=== PATIENT | female | born 1945 | race Caucasian/White ===

== ENCOUNTER 2022-06-17 02:10 | Inpatient (IN) ==
[2022-06-17] MEDS ORDERED: *HR* Midazolam HCl 2 MG/2 ML VIAL IVP ONE (02:30)
[2022-06-17 03:12] LABS: Basophils # 0.1 K/mcL (0.0-0.2); Basophils % 0.9 %; Eosinophils # 0.1 K/mcL (0.0-0.6); Eosinophils % 1.2 %; Hematocrit 36.1 % (35.3-44.9); Hemoglobin 11.3 g/dL (11.5-15.4); Immature Granulocytes % 0.3 % (0-4); Lymphocytes # 0.6 K/mcL (0.6-4.6); Lymphocytes % 9.7 %; Mean Corpuscular HGB Conc 31.3 g/dL (31.6-35.5); Mean Corpuscular Volume 89.6 fL (83.0-100.0); Mean Platelet Volume 12.8 fL (9.4-12.4); Monocytes # 0.7 K/mcL (0.0-1.3); Monocytes % 10.8 %; Neutrophils # 4.9 K/mcL (1.6-8.9); Platelet Count 181 K/mcL (140-400); Red Blood Count 4.03 M/mcL (3.82-4.97); Red Cell Distribution Width 15.7 % (11.5-14.5); Segmented Neutrophils % 77.1 %; White Blood Count 6.4 K/mcL (4.3-11.1)
[2022-06-17 03:16] LABS: INR 1.3; Prothrombin Time 14.7 Seconds (9.4-12.1)
[2022-06-17 03:29] LABS: Alanine Aminotransferase 1 Units/L (7-52); Albumin 4.3 g/dL (3.5-5.7); Albumin/Globulin Ratio 1.9 (1.1-2.2); Alkaline Phosphatase 79 Units/L (34-104); Aspartate Amino Transferase 8 Units/L (13-39); BUN/Creatinine Ratio 23 (6-26); Bilirubin,Total 1.1 mg/dL (0.3-1.0); Blood Urea Nitrogen 16 mg/dL (8-23); Calcium 9.2 mg/dL (8.6-10.3); Carbon Dioxide 29 mEq/L (23-29); Chloride 99 mEq/L (98-107); Globulin 2.3 g/dL (2.4-3.5); Glucose 112 mg/dL (70-105); Osmolality,Calculated 284 (280-300); Potassium 3.2 mEq/L (3.5-5.1); Sodium 136 mEq/L (136-145); Total Protein 6.6 g/dL (6.4-8.9)
[2022-06-17] MEDS: *HR* Midazolam HCl 2 MG/2 ML VIAL IVP PRN ×4 (05:06→11:57)
[2022-06-17] MEDS: 0.9 % Sodium Chloride 1,000 ML IVC SCH ×6 (05:10→17:26)
[2022-06-17 05:15] LABS: Bilirubin,Urine Small (Negative); Blood,Urine Negative (Negative); Clarity,Urine Clear (Clear); Color,Urine Yellow (Yellow); Glucose,Urine (UA) Normal (Normal); Ketones,Urine 15 mg/dL (Negative); Leukocyte Esterase,Urine Negative (Negative); Nitrite,Urine Negative (Negative); PH,Urine 5.5 pH Units (5.0-8.0); Protein,Urine 30 mg/dL (Neg-Trace); Specific Gravity,Urine >= 1.030 (1.010-1.025); Urobilinogen,Urine Normal (Normal)
[2022-06-17 05:36] LABS: Bacteria,Urine Few per hpf (None-Few); Calcium Oxalate Crystals,Urine Present per hpf; Mucus,Urine Few per lpf (None-Few); RBC,Urine 0-3 per hpf (0-3); Squamous Epithelial Cell,Urine Few per hpf (None-Few)
[2022-06-17 05:47] LABS: Amphetamine Screen,Urine Negative ng/mL (Cutoff=1000); Barbiturate Screen,Urine Negative ng/mL (Cutoff=200); Benzodiazepines Screen,Urine Positive ng/mL (Cutoff=200); Cannabinoid Screen,Urine Negative ng/mL (Cutoff = 50); Cocaine Screen,Urine Negative ng/mL (Cutoff= 300); Opiate Screen,Urine Positive ng/mL (Cutoff=300); Phencyclidine Screen,Urine Negative ng/mL (Cutoff=25)
[2022-06-17] MEDS ORDERED: cefTRIAXone 1,000 MG in 0.9 % Sodium Chloride Mini Bag 100 ML IVPB ONE (05:53)
[2022-06-17 12:08] LABS: VBG HCO3 29 mEq/L (21-27); VBG PCO2 60 mmHg (41-51); VBG PO2 49 mmHg (25-50)
[2022-06-17 12:48] LABS: Calcium 8.7 mg/dL (8.6-10.3); Potassium 3.7 mEq/L (3.5-5.1); Troponin I 0.05 ng/mL (< 0.04)
[2022-06-17] MEDS ORDERED: Naloxone 0.4 MG/ML INJ IVP PRN (14:21)
[2022-06-17] MEDS ORDERED: Ondansetron 4 MG/2 ML VIAL IVP PRN (14:21)
[2022-06-17] MEDS ORDERED: MOM Conc 10 ML UD.LIQ PO PRN ×2 (14:21→18:57)
[2022-06-17] MEDS ORDERED: Mag Hydrox/Al Hydrox/Simeth 30 ML UDC PO PRN ×2 (14:21→18:57)
[2022-06-17] MEDS ORDERED: Ondansetron ODT 4 MG TAB.RAPDIS SL PRN (14:21)
[2022-06-17] MEDS ORDERED: Melatonin 3 MG TABLET PO PRN (14:21)
[2022-06-17] MEDS ORDERED: 0.9 % Sodium Chloride 1,000 ML IVC SCH (15:30)
[2022-06-17] MEDS ORDERED: Haloperidol Lactate 5 MG/ML VIAL IVP PRN (15:52)
[2022-06-17] MEDS ORDERED: haloperidoL 1 MG TABLET PO PRN (15:52)
[2022-06-17] MEDS ORDERED: Bisacodyl 10 MG RECTAL SUPPOSITORY RC PRN (16:34)
[2022-06-17] MEDS ORDERED: Acetaminophen 650 MG RECTAL SUPP RC PRN (16:35)
[2022-06-17] MEDS: Piperacillin/Tazobactam 3.375 GM in 0.9 % Sodium Chloride Mini Bag 100 ML IVPB SCH (16:59)
[2022-06-17] MEDS: Famotidine 20 MG/2 ML VIAL IVP SCH (17:53)
[2022-06-17] MEDS: Sennosides/Docusate Sodium TABLET PO SCH (21:30)
[2022-06-17] MEDS: levoFLOXacin 500 MG TABLET PO SCH (21:31)
[2022-06-17] MEDS: Aspirin Enteric Coated 81 MG Tablet PO SCH (21:32)
[2022-06-18] MEDS: Piperacillin/Tazobactam 3.375 GM in 0.9 % Sodium Chloride Mini Bag 100 ML IVPB SCH ×3 (00:06→17:05)
[2022-06-18] MEDS: Famotidine 20 MG/2 ML VIAL IVP SCH ×2 (04:49→17:05)
[2022-06-18] MEDS: 0.9 % Sodium Chloride 1,000 ML IVC SCH (04:56)
[2022-06-18 05:08] LABS: Basophils # 0.1 K/mcL (0.0-0.2); Basophils % 1.3 %; Eosinophils # 0.3 K/mcL (0.0-0.6); Eosinophils % 4.2 %; Hematocrit 34.2 % (35.3-44.9); Hemoglobin 10.5 g/dL (11.5-15.4); Immature Granulocytes % 0.3 % (0-4); Lymphocytes # 0.7 K/mcL (0.6-4.6); Mean Corpuscular HGB Conc 30.7 g/dL (31.6-35.5); Mean Corpuscular Hemoglobin 27.9 pg (28.0-33.3); Mean Platelet Volume 12.9 fL (9.4-12.4); Monocytes # 0.6 K/mcL (0.0-1.3); Monocytes % 9.7 %; Neutrophils # 4.5 K/mcL (1.6-8.9); Platelet Count 137 K/mcL (140-400); Red Blood Count 3.76 M/mcL (3.82-4.97); Red Cell Distribution Width 15.6 % (11.5-14.5); Segmented Neutrophils % 72.5 %; White Blood Count 6.2 K/mcL (4.3-11.1)
[2022-06-18 05:22] LABS: Alanine Aminotransferase 3 Units/L (7-52); Albumin 3.6 g/dL (3.5-5.7); Albumin/Globulin Ratio 1.8 (1.1-2.2); Alkaline Phosphatase 66 Units/L (34-104); Aspartate Amino Transferase 7 Units/L (13-39); BUN/Creatinine Ratio 27 (6-26); Bilirubin,Total 1.1 mg/dL (0.3-1.0); Blood Urea Nitrogen 15 mg/dL (8-23); Calcium 8.3 mg/dL (8.6-10.3); Carbon Dioxide 28 mEq/L (23-29); Chloride 105 mEq/L (98-107); Glucose 77 mg/dL (70-105); Magnesium 1.7 mg/dL (1.6-2.6); Osmolality,Calculated 290 (280-300); Phosphorous 3.9 mg/dL (2.7-4.5); Potassium 3.2 mEq/L (3.5-5.1); Sodium 140 mEq/L (136-145); Total Protein 5.6 g/dL (6.4-8.9)
[2022-06-18] MEDS: Furosemide 20 MG TABLET PO SCH (08:19)
[2022-06-18] MEDS: Aspirin Enteric Coated 81 MG Tablet PO SCH ×2 (08:20→21:03)
[2022-06-18] MEDS: polyethylene glycoL 3350 17 GM POWD.PACK PO SCH (08:21)
[2022-06-18] MEDS: Carbidopa/Levodopa 25/100 TABLET PO SCH ×4 (09:33→17:05)
[2022-06-18] MEDS: Sacubitril/Valsartan 49/51 MG 1 TABLET PO SCH ×2 (09:34→21:05)
[2022-06-18] MEDS ORDERED: hydrALAZINE 10 MG TABLET PO ONE (11:46)
[2022-06-18] MEDS: Sennosides/Docusate Sodium TABLET PO SCH (21:04)
[2022-06-18] MEDS: levoFLOXacin 500 MG TABLET PO SCH (21:04)
[2022-06-18] MEDS: Carbidopa/Levodopa ER 50/200 TABLET PO SCH (21:04)
[2022-06-19] MEDS: Piperacillin/Tazobactam 3.375 GM in 0.9 % Sodium Chloride Mini Bag 100 ML IVPB SCH ×3 (00:18→16:17)
[2022-06-19 05:11] LABS: Hematocrit 34.5 % (35.3-44.9); Hemoglobin 10.4 g/dL (11.5-15.4); Mean Corpuscular HGB Conc 30.1 g/dL (31.6-35.5); Mean Corpuscular Hemoglobin 27.5 pg (28.0-33.3); Mean Corpuscular Volume 91.3 fL (83.0-100.0); Mean Platelet Volume 12.5 fL (9.4-12.4); Platelet Count 134 K/mcL (140-400); Red Blood Count 3.78 M/mcL (3.82-4.97); Red Cell Distribution Width 15.6 % (11.5-14.5); White Blood Count 6.2 K/mcL (4.3-11.1)
[2022-06-19] MEDS: *HR* Enoxaparin 40 MG/0.4 ML SYRINGE SQ SCH (05:25)
[2022-06-19] MEDS: Famotidine 20 MG/2 ML VIAL IVP SCH ×2 (05:25→16:16)
[2022-06-19 05:30] LABS: Calcium 8.4 mg/dL (8.6-10.3); Magnesium 1.8 mg/dL (1.6-2.6); Potassium 3.7 mEq/L (3.5-5.1)
[2022-06-19] MEDS: hydrALAZINE 10 MG TABLET PO PRN (05:56)
[2022-06-19] MEDS: 0.9 % Sodium Chloride 1,000 ML IVC SCH ×7 (07:11→07:17)
[2022-06-19] MEDS: Aspirin Enteric Coated 81 MG Tablet PO SCH ×2 (08:45→21:43)
[2022-06-19] MEDS: Acetaminophen 325 MG TABLET PO PRN (08:45)
[2022-06-19] MEDS: Furosemide 20 MG TABLET PO SCH (08:46)
[2022-06-19] MEDS: polyethylene glycoL 3350 17 GM POWD.PACK PO SCH (08:47)
[2022-06-19] MEDS: Carbidopa/Levodopa 25/100 TABLET PO SCH ×4 (08:52→21:52)
[2022-06-19] MEDS: Sacubitril/Valsartan 49/51 MG 1 TABLET PO SCH ×3 (10:30→21:57)
[2022-06-19] MEDS: Carbidopa/Levodopa ER 50/200 TABLET PO SCH (21:43)
[2022-06-19] MEDS: Sennosides/Docusate Sodium TABLET PO SCH (21:43)
[2022-06-20] MEDS: Piperacillin/Tazobactam 3.375 GM in 0.9 % Sodium Chloride Mini Bag 100 ML IVPB SCH ×3 (00:58→14:30)
[2022-06-20] MEDS: *HR* Enoxaparin 40 MG/0.4 ML SYRINGE SQ SCH (05:29)
[2022-06-20] MEDS: Famotidine 20 MG/2 ML VIAL IVP SCH (05:29)
[2022-06-20] MEDS: Acetaminophen 325 MG TABLET PO PRN (05:29)
[2022-06-20] MEDS: Aspirin Enteric Coated 81 MG Tablet PO SCH ×2 (09:26→21:40)
[2022-06-20] MEDS: hydrALAZINE 10 MG TABLET PO PRN (09:27)
[2022-06-20] MEDS: Furosemide 20 MG TABLET PO SCH (09:27)
[2022-06-20] MEDS: polyethylene glycoL 3350 17 GM POWD.PACK PO SCH (09:28)
[2022-06-20] MEDS: Sacubitril/Valsartan 49/51 MG 1 TABLET PO SCH ×2 (09:28→21:40)
[2022-06-20] MEDS: Carbidopa/Levodopa 25/100 TABLET PO SCH ×4 (09:35→16:35)
[2022-06-20 16:08] VITALS: PULSE 63
[2022-06-20] MEDS ORDERED: Famotidine 20 MG TABLET PO SCH ×2 (18:00→21:00)
[2022-06-20] MEDS: Sennosides/Docusate Sodium TABLET PO SCH (21:41)
[2022-06-20] MEDS: Carbidopa/Levodopa ER 50/200 TABLET PO SCH (21:42)
[2022-06-20 23:26] VITALS: RESP 18
[2022-06-21 00:05] VITALS: BP 174/94; TEMP 98; O2SAT 96
[2022-06-21] MEDS: Piperacillin/Tazobactam 3.375 GM in 0.9 % Sodium Chloride Mini Bag 100 ML IVPB SCH (00:45)
== END 2022-06-20 23:59 | disposition other institution (70) | DRG 81 ==
LOC: INPGRE 02:10 → EMEROOGRE 02:10 → INPGRE 14:10
PROVIDERS: ADMIT Family Medicine; ATTEND Family Medicine

== ENCOUNTER 2022-06-20 14:22 | Inpatient (IN) ==
[2022-06-20] MEDS ORDERED: Piperacillin/Tazobactam 3.375 GM in 0.9 % Sodium Chloride Mini Bag 100 ML IVPB SCH (16:00)
[2022-06-21] MEDS ORDERED: MOM Conc 10 ML UD.LIQ PO PRN (03:24)
[2022-06-21] MEDS: Carbidopa/Levodopa 25/100 TABLET PO SCH ×7 (03:35→23:06)
[2022-06-21] MEDS: Aspirin Enteric Coated 81 MG Tablet PO SCH ×3 (03:35→19:50)
[2022-06-21] MEDS: Sacubitril/Valsartan 49/51 MG 1 TABLET PO SCH ×3 (03:36→19:49)
[2022-06-21] MEDS: Sennosides/Docusate Sodium TABLET PO SCH ×2 (03:36→19:58)
[2022-06-21 04:45] LABS: Basophils # 0.1 K/mcL (0.0-0.2); Basophils % 1.5 %; Eosinophils # 0.4 K/mcL (0.0-0.6); Eosinophils % 7.7 %; Hemoglobin 10.5 g/dL (11.5-15.4); Immature Granulocytes % 0.4 % (0-4); Lymphocytes # 0.7 K/mcL (0.6-4.6); Mean Corpuscular Hemoglobin 27.6 pg (28.0-33.3); Mean Corpuscular Volume 92.1 fL (83.0-100.0); Mean Platelet Volume 13.3 fL (9.4-12.4); Monocytes # 0.5 K/mcL (0.0-1.3); Monocytes % 10.5 %; Red Cell Distribution Width 15.7 % (11.5-14.5); Segmented Neutrophils % 64.9 %; White Blood Count 4.7 K/mcL (4.3-11.1)
[2022-06-21 04:52] LABS: Platelet Count 121 K/mcL (140-400); Platelet Estimate Normal (Normal)
[2022-06-21 05:01] LABS: BUN/Creatinine Ratio 17 (6-26); Blood Urea Nitrogen 10 mg/dL (8-23); Calcium 8.3 mg/dL (8.6-10.3); Carbon Dioxide 35 mEq/L (23-29); Chloride 103 mEq/L (98-107); Glucose 91 mg/dL (70-105); Magnesium 1.7 mg/dL (1.6-2.6); Osmolality,Calculated 291 (280-300); Potassium 3.5 mEq/L (3.5-5.1); Sodium 141 mEq/L (136-145)
[2022-06-21] MEDS: *HR* Enoxaparin 40 MG/0.4 ML SYRINGE SQ SCH (05:56)
[2022-06-21] MEDS: Furosemide 20 MG TABLET PO SCH (08:11)
[2022-06-21] MEDS: polyethylene glycoL 3350 17 GM POWD.PACK PO SCH (08:13)
[2022-06-22] MEDS: *HR* Enoxaparin 40 MG/0.4 ML SYRINGE SQ SCH (06:29)
[2022-06-22] MEDS: Aspirin Enteric Coated 81 MG Tablet PO SCH ×2 (08:17→20:29)
[2022-06-22] MEDS: Furosemide 20 MG TABLET PO SCH (08:18)
[2022-06-22] MEDS: Sacubitril/Valsartan 49/51 MG 1 TABLET PO SCH ×2 (08:18→20:29)
[2022-06-22] MEDS: polyethylene glycoL 3350 17 GM POWD.PACK PO SCH (08:18)
[2022-06-22] MEDS: Carbidopa/Levodopa 25/100 TABLET PO SCH ×5 (08:18→22:18)
[2022-06-22] MEDS: Sennosides/Docusate Sodium TABLET PO SCH (20:28)
[2022-06-23] MEDS: *HR* Enoxaparin 40 MG/0.4 ML SYRINGE SQ SCH (05:25)
[2022-06-23] MEDS: Furosemide 20 MG TABLET PO SCH (08:14)
[2022-06-23] MEDS: Sacubitril/Valsartan 49/51 MG 1 TABLET PO SCH ×2 (08:14→20:58)
[2022-06-23] MEDS: Carbidopa/Levodopa 25/100 TABLET PO SCH ×5 (08:14→23:31)
[2022-06-23] MEDS: Aspirin Enteric Coated 81 MG Tablet PO SCH ×2 (08:15→20:58)
[2022-06-23] MEDS: polyethylene glycoL 3350 17 GM POWD.PACK PO SCH (08:15)
[2022-06-23] MEDS: Sennosides/Docusate Sodium TABLET PO SCH (20:57)
[2022-06-24 05:01] LABS: Basophils # 0.1 K/mcL (0.0-0.2); Basophils % 1.4 %; Eosinophils # 0.3 K/mcL (0.0-0.6); Eosinophils % 6.7 %; Hemoglobin 10.8 g/dL (11.5-15.4); Immature Granulocytes % 0.2 % (0-4); Lymphocytes # 0.8 K/mcL (0.6-4.6); Lymphocytes % 19.4 %; Mean Corpuscular HGB Conc 30.9 g/dL (31.6-35.5); Mean Corpuscular Hemoglobin 27.5 pg (28.0-33.3); Mean Corpuscular Volume 89.1 fL (83.0-100.0); Monocytes # 0.5 K/mcL (0.0-1.3); Monocytes % 12.5 %; Neutrophils # 2.6 K/mcL (1.6-8.9); Platelet Count 129 K/mcL (140-400); Red Blood Count 3.93 M/mcL (3.82-4.97); Red Cell Distribution Width 15.4 % (11.5-14.5); Segmented Neutrophils % 59.8 %; White Blood Count 4.3 K/mcL (4.3-11.1)
[2022-06-24 05:16] LABS: BUN/Creatinine Ratio 17 (6-26); Blood Urea Nitrogen 9 mg/dL (8-23); Calcium 8.7 mg/dL (8.6-10.3); Carbon Dioxide 35 mEq/L (23-29); Chloride 98 mEq/L (98-107); Glucose 95 mg/dL (70-105); Osmolality,Calculated 286 (280-300); Potassium 3.3 mEq/L (3.5-5.1); Sodium 139 mEq/L (136-145)
[2022-06-24] MEDS: *HR* Enoxaparin 40 MG/0.4 ML SYRINGE SQ SCH (05:28)
[2022-06-24] MEDS: polyethylene glycoL 3350 17 GM POWD.PACK PO SCH (08:44)
[2022-06-24] MEDS: Acetaminophen 325 MG TABLET PO PRN (08:44)
[2022-06-24] MEDS: Furosemide 20 MG TABLET PO SCH (08:45)
[2022-06-24] MEDS: Sacubitril/Valsartan 49/51 MG 1 TABLET PO SCH ×2 (08:45→20:37)
[2022-06-24] MEDS: Carbidopa/Levodopa 25/100 TABLET PO SCH ×5 (08:45→20:33)
[2022-06-24] MEDS: Aspirin Enteric Coated 81 MG Tablet PO SCH ×2 (08:45→20:32)
[2022-06-24] MEDS: Sennosides/Docusate Sodium TABLET PO SCH (20:33)
[2022-06-24] MEDS: hydrALAZINE 10 MG TABLET PO PRN (20:36)
[2022-06-24] MEDS: Melatonin 3 MG TABLET PO PRN (20:39)
[2022-06-25] MEDS: *HR* Enoxaparin 40 MG/0.4 ML SYRINGE SQ SCH (06:49)
[2022-06-25] MEDS: Carbidopa/Levodopa 25/100 TABLET PO SCH ×5 (07:45→20:15)
[2022-06-25] MEDS: Acetaminophen 325 MG TABLET PO PRN ×2 (07:45→15:40)
[2022-06-25] MEDS: Sacubitril/Valsartan 49/51 MG 1 TABLET PO SCH ×2 (07:46→20:16)
[2022-06-25] MEDS: Aspirin Enteric Coated 81 MG Tablet PO SCH ×2 (07:46→20:16)
[2022-06-25] MEDS: polyethylene glycoL 3350 17 GM POWD.PACK PO SCH (07:46)
[2022-06-25] MEDS: Furosemide 20 MG TABLET PO SCH (07:46)
[2022-06-25] MEDS: hydrALAZINE 10 MG TABLET PO PRN (07:47)
[2022-06-25] MEDS: Sennosides/Docusate Sodium TABLET PO SCH (20:14)
[2022-06-25] MEDS: Melatonin 3 MG TABLET PO PRN (20:15)
[2022-06-26] MEDS: *HR* Enoxaparin 40 MG/0.4 ML SYRINGE SQ SCH (05:13)
[2022-06-26 06:09] LABS: Basophils # 0.1 K/mcL (0.0-0.2); Basophils % 1.5 %; Eosinophils # 0.2 K/mcL (0.0-0.6); Eosinophils % 5.6 %; Hematocrit 36.6 % (35.3-44.9); Hemoglobin 11.2 g/dL (11.5-15.4); Immature Granulocytes % 0.3 % (0-4); Lymphocytes # 0.9 K/mcL (0.6-4.6); Lymphocytes % 23.2 %; Mean Corpuscular HGB Conc 30.6 g/dL (31.6-35.5); Mean Corpuscular Hemoglobin 27.3 pg (28.0-33.3); Mean Corpuscular Volume 89.1 fL (83.0-100.0); Mean Platelet Volume 12.8 fL (9.4-12.4); Monocytes # 0.5 K/mcL (0.0-1.3); Monocytes % 12.1 %; Neutrophils # 2.3 K/mcL (1.6-8.9); Platelet Count 138 K/mcL (140-400); Red Blood Count 4.11 M/mcL (3.82-4.97); Red Cell Distribution Width 15.8 % (11.5-14.5); Segmented Neutrophils % 57.3 %
[2022-06-26 06:29] LABS: BUN/Creatinine Ratio 14 (6-26); Blood Urea Nitrogen 8 mg/dL (8-23); Carbon Dioxide 30 mEq/L (23-29); Chloride 98 mEq/L (98-107); Glucose 88 mg/dL (70-105); Osmolality,Calculated 276 (280-300); Potassium 3.5 mEq/L (3.5-5.1); Sodium 134 mEq/L (136-145)
[2022-06-26] MEDS: Furosemide 20 MG TABLET PO SCH (09:01)
[2022-06-26] MEDS: Aspirin Enteric Coated 81 MG Tablet PO SCH ×2 (09:01→19:57)
[2022-06-26] MEDS: Carbidopa/Levodopa 25/100 TABLET PO SCH ×5 (09:01→22:30)
[2022-06-26] MEDS: polyethylene glycoL 3350 17 GM POWD.PACK PO SCH (09:01)
[2022-06-26] MEDS: Sacubitril/Valsartan 49/51 MG 1 TABLET PO SCH ×2 (09:03→19:57)
[2022-06-26] MEDS: amLODIPine 5 MG TABLET PO SCH (12:06)
[2022-06-26] MEDS: Sennosides/Docusate Sodium TABLET PO SCH (19:56)
[2022-06-26] MEDS: Melatonin 3 MG TABLET PO PRN (22:30)
[2022-06-27] MEDS: *HR* Enoxaparin 40 MG/0.4 ML SYRINGE SQ SCH (04:36)
[2022-06-27] MEDS: polyethylene glycoL 3350 17 GM POWD.PACK PO SCH (08:16)
[2022-06-27] MEDS: Furosemide 20 MG TABLET PO SCH (08:16)
[2022-06-27] MEDS: Carbidopa/Levodopa 25/100 TABLET PO SCH ×5 (08:16→22:24)
[2022-06-27] MEDS: Aspirin Enteric Coated 81 MG Tablet PO SCH ×2 (08:17→20:21)
[2022-06-27] MEDS: amLODIPine 5 MG TABLET PO SCH (08:17)
[2022-06-27] MEDS: Sacubitril/Valsartan 49/51 MG 1 TABLET PO SCH ×2 (08:17→20:21)
[2022-06-27] MEDS: Sennosides/Docusate Sodium TABLET PO SCH (20:21)
[2022-06-27] MEDS: Melatonin 3 MG TABLET PO PRN (22:23)
[2022-06-28] MEDS: *HR* Enoxaparin 40 MG/0.4 ML SYRINGE SQ SCH (05:43)
[2022-06-28] MEDS: Aspirin Enteric Coated 81 MG Tablet PO SCH ×2 (08:03→21:27)
[2022-06-28] MEDS: Carbidopa/Levodopa 25/100 TABLET PO SCH ×5 (08:03→22:29)
[2022-06-28] MEDS: Sacubitril/Valsartan 49/51 MG 1 TABLET PO SCH ×2 (08:03→21:27)
[2022-06-28] MEDS: polyethylene glycoL 3350 17 GM POWD.PACK PO SCH (08:04)
[2022-06-28] MEDS: Furosemide 20 MG TABLET PO SCH (08:04)
[2022-06-28 12:21] LABS: Bilirubin,Urine Negative (Negative); Blood,Urine Negative (Negative); Clarity,Urine Clear (Clear); Color,Urine Yellow (Yellow); Glucose,Urine (UA) Normal (Normal); Ketones,Urine Negative (Negative); Leukocyte Esterase,Urine Negative (Negative); Nitrite,Urine Negative (Negative); PH,Urine 7.5 pH Units (5.0-8.0); Protein,Urine Negative (Neg-Trace); Specific Gravity,Urine 1.015 (1.010-1.025); Urobilinogen,Urine Normal (Normal)
[2022-06-28] MEDS: hydrALAZINE 10 MG TABLET PO PRN (18:49)
[2022-06-28] MEDS: Sennosides/Docusate Sodium TABLET PO SCH (21:27)
[2022-06-28] MEDS: Melatonin 3 MG TABLET PO PRN (22:29)
[2022-06-29] MEDS: hydrALAZINE 10 MG TABLET PO PRN ×2 (00:24→20:36)
[2022-06-29] MEDS: *HR* Enoxaparin 40 MG/0.4 ML SYRINGE SQ SCH (04:43)
[2022-06-29] MEDS: Sacubitril/Valsartan 49/51 MG 1 TABLET PO SCH ×2 (08:07→20:36)
[2022-06-29] MEDS: polyethylene glycoL 3350 17 GM POWD.PACK PO SCH (08:07)
[2022-06-29] MEDS: Aspirin Enteric Coated 81 MG Tablet PO SCH ×2 (08:09→20:36)
[2022-06-29] MEDS: Furosemide 20 MG TABLET PO SCH (08:09)
[2022-06-29] MEDS: Carbidopa/Levodopa 25/100 TABLET PO SCH ×5 (08:09→20:37)
[2022-06-29] MEDS: Acetaminophen 325 MG TABLET PO PRN (08:15)
[2022-06-29] MEDS: Melatonin 3 MG TABLET PO PRN (20:36)
[2022-06-29] MEDS: Sennosides/Docusate Sodium TABLET PO SCH (20:36)
[2022-06-30] MEDS: *HR* Enoxaparin 40 MG/0.4 ML SYRINGE SQ SCH (04:14)
[2022-06-30] MEDS: Carbidopa/Levodopa 25/100 TABLET PO SCH ×5 (08:57→21:52)
[2022-06-30] MEDS: polyethylene glycoL 3350 17 GM POWD.PACK PO SCH (08:58)
[2022-06-30] MEDS: Sacubitril/Valsartan 49/51 MG 1 TABLET PO SCH ×2 (08:58→21:45)
[2022-06-30] MEDS: Aspirin Enteric Coated 81 MG Tablet PO SCH ×2 (08:58→21:44)
[2022-06-30] MEDS: Furosemide 20 MG TABLET PO SCH (08:58)
[2022-06-30] MEDS: hydrALAZINE 10 MG TABLET PO PRN (09:01)
[2022-06-30] MEDS ORDERED: hydrALAZINE 25 MG TABLET PO PRN (09:14)
[2022-06-30] MEDS: Acetaminophen 325 MG TABLET PO PRN (12:42)
[2022-06-30] MEDS: Sennosides/Docusate Sodium TABLET PO SCH (21:44)
[2022-07-01 05:34] LABS: Hematocrit 34.1 % (35.3-44.9); Hemoglobin 10.6 g/dL (11.5-15.4); Mean Corpuscular HGB Conc 31.1 g/dL (31.6-35.5); Mean Corpuscular Hemoglobin 27.3 pg (28.0-33.3); Mean Corpuscular Volume 87.9 fL (83.0-100.0); Mean Platelet Volume 14.1 fL (9.4-12.4); Platelet Count 152 K/mcL (140-400); Red Blood Count 3.88 M/mcL (3.82-4.97); Red Cell Distribution Width 15.9 % (11.5-14.5); White Blood Count 4.2 K/mcL (4.3-11.1)
[2022-07-01 05:46] LABS: BUN/Creatinine Ratio 17 (6-26); Blood Urea Nitrogen 11 mg/dL (8-23); Carbon Dioxide 26 mEq/L (23-29); Chloride 103 mEq/L (98-107); Glucose 96 mg/dL (70-105); Magnesium 1.8 mg/dL (1.6-2.6); Osmolality,Calculated 283 (280-300); Potassium 3.7 mEq/L (3.5-5.1); Sodium 137 mEq/L (136-145)
[2022-07-01] MEDS: *HR* Enoxaparin 40 MG/0.4 ML SYRINGE SQ SCH (06:36)
[2022-07-01] MEDS: Carbidopa/Levodopa 25/100 TABLET PO SCH ×4 (09:24→20:42)
[2022-07-01] MEDS: Aspirin Enteric Coated 81 MG Tablet PO SCH ×2 (09:24→20:41)
[2022-07-01] MEDS: Furosemide 20 MG TABLET PO SCH (09:25)
[2022-07-01] MEDS: Sacubitril/Valsartan 49/51 MG 1 TABLET PO SCH ×2 (09:25→20:38)
[2022-07-01] MEDS: polyethylene glycoL 3350 17 GM POWD.PACK PO SCH (09:25)
[2022-07-01] MEDS: Sennosides/Docusate Sodium TABLET PO SCH (20:40)
[2022-07-01] MEDS: Melatonin 3 MG TABLET PO PRN (20:40)
[2022-07-02] MEDS: Carbidopa/Levodopa 25/100 TABLET PO SCH ×5 (06:39→20:20)
[2022-07-02] MEDS: *HR* Enoxaparin 40 MG/0.4 ML SYRINGE SQ SCH (06:40)
[2022-07-02] MEDS: polyethylene glycoL 3350 17 GM POWD.PACK PO SCH (08:39)
[2022-07-02] MEDS: Sacubitril/Valsartan 49/51 MG 1 TABLET PO SCH ×2 (08:41→20:18)
[2022-07-02] MEDS: Aspirin Enteric Coated 81 MG Tablet PO SCH ×2 (08:41→20:18)
[2022-07-02] MEDS: Acetaminophen 325 MG TABLET PO PRN ×2 (08:41→16:38)
[2022-07-02] MEDS: Furosemide 20 MG TABLET PO SCH (08:41)
[2022-07-02] MEDS: Melatonin 3 MG TABLET PO PRN (20:17)
[2022-07-02] MEDS: Sennosides/Docusate Sodium TABLET PO SCH (20:18)
[2022-07-03] MEDS: Carbidopa/Levodopa 25/100 TABLET PO SCH ×6 (01:14→20:41)
[2022-07-03 05:07] LABS: Hematocrit 34.3 % (35.3-44.9); Hemoglobin 10.6 g/dL (11.5-15.4); Mean Corpuscular HGB Conc 30.9 g/dL (31.6-35.5); Mean Corpuscular Hemoglobin 27.1 pg (28.0-33.3); Mean Corpuscular Volume 87.7 fL (83.0-100.0); Mean Platelet Volume 13.8 fL (9.4-12.4); Platelet Count 157 K/mcL (140-400); Red Blood Count 3.91 M/mcL (3.82-4.97); Red Cell Distribution Width 15.7 % (11.5-14.5); White Blood Count 4.5 K/mcL (4.3-11.1)
[2022-07-03 05:20] LABS: BUN/Creatinine Ratio 20 (6-26); Blood Urea Nitrogen 13 mg/dL (8-23); Carbon Dioxide 27 mEq/L (23-29); Chloride 102 mEq/L (98-107); Glucose 97 mg/dL (70-105); Magnesium 1.9 mg/dL (1.6-2.6); Osmolality,Calculated 284 (280-300); Potassium 3.7 mEq/L (3.5-5.1); Sodium 137 mEq/L (136-145)
[2022-07-03] MEDS: *HR* Enoxaparin 40 MG/0.4 ML SYRINGE SQ SCH (06:06)
[2022-07-03] MEDS: Sacubitril/Valsartan 49/51 MG 1 TABLET PO SCH ×2 (08:16→20:41)
[2022-07-03] MEDS: Furosemide 20 MG TABLET PO SCH (08:16)
[2022-07-03] MEDS: polyethylene glycoL 3350 17 GM POWD.PACK PO SCH (08:16)
[2022-07-03] MEDS: Aspirin Enteric Coated 81 MG Tablet PO SCH ×2 (08:16→20:42)
[2022-07-03] MEDS: Sennosides/Docusate Sodium TABLET PO SCH (20:42)
[2022-07-03] MEDS: Melatonin 3 MG TABLET PO PRN (23:11)
[2022-07-04] MEDS: *HR* Enoxaparin 40 MG/0.4 ML SYRINGE SQ SCH (04:48)
[2022-07-04] MEDS: Sacubitril/Valsartan 49/51 MG 1 TABLET PO SCH ×2 (08:09→21:15)
[2022-07-04] MEDS: Carbidopa/Levodopa 25/100 TABLET PO SCH ×5 (08:10→21:14)
[2022-07-04] MEDS: Aspirin Enteric Coated 81 MG Tablet PO SCH ×2 (08:10→21:14)
[2022-07-04] MEDS: Furosemide 20 MG TABLET PO SCH (08:10)
[2022-07-04] MEDS: polyethylene glycoL 3350 17 GM POWD.PACK PO SCH (08:10)
[2022-07-04] MEDS: Acetaminophen 325 MG TABLET PO PRN (12:11)
[2022-07-04 12:31] LABS: Bilirubin,Urine Negative (Negative); Blood,Urine Negative (Negative); Clarity,Urine Clear (Clear); Color,Urine Yellow (Yellow); Glucose,Urine (UA) Normal (Normal); Ketones,Urine 15 mg/dL (Negative); Leukocyte Esterase,Urine Small (Negative); Nitrite,Urine Negative (Negative); Protein,Urine Negative (Neg-Trace); Urobilinogen,Urine Normal (Normal)
[2022-07-04 12:37] LABS: Bacteria,Urine Few per hpf (None-Few); Squamous Epithelial Cell,Urine Few per hpf (None-Few); WBC,Urine 0-3 per hpf (0-3)
[2022-07-04] MEDS ORDERED: *HR* LORazepam 0.5 MG TABLET PO PRN (15:04)
[2022-07-04] MEDS ORDERED: *HR* LORazepam 0.5 MG TABLET PO ONE ×2 (15:04→17:49)
[2022-07-04] MEDS ORDERED: *HR* LORazepam 1 MG TABLET PO PRN (17:52)
[2022-07-04] MEDS ORDERED: QUEtiapine Fumarate 25 MG TABLET PO SCH (21:00)
[2022-07-04] MEDS: *HR* LORazepam 1 MG TABLET PO SCH (21:13)
[2022-07-04] MEDS: Sennosides/Docusate Sodium TABLET PO SCH (21:14)
[2022-07-05 04:43] LABS: Hematocrit 33.3 % (35.3-44.9); Hemoglobin 10.2 g/dL (11.5-15.4); Mean Corpuscular HGB Conc 30.6 g/dL (31.6-35.5); Mean Corpuscular Hemoglobin 27.3 pg (28.0-33.3); Mean Platelet Volume 13.7 fL (9.4-12.4); Platelet Count 140 K/mcL (140-400); Red Blood Count 3.74 M/mcL (3.82-4.97); Red Cell Distribution Width 15.8 % (11.5-14.5)
[2022-07-05 05:33] LABS: Alanine Aminotransferase < 3 Units/L (7-52)
[2022-07-05 05:34] LABS: Albumin 3.6 g/dL (3.5-5.7); Albumin/Globulin Ratio 2.3 (1.1-2.2); Alkaline Phosphatase 69 Units/L (34-104); Aspartate Amino Transferase 6 Units/L (13-39); BUN/Creatinine Ratio 19 (6-26); Bilirubin,Total 0.9 mg/dL (0.3-1.0); Blood Urea Nitrogen 13 mg/dL (8-23); Calcium 8.8 mg/dL (8.6-10.3); Carbon Dioxide 30 mEq/L (23-29); Chloride 103 mEq/L (98-107); Globulin 1.6 g/dL (2.4-3.5); Glucose 82 mg/dL (70-105); Magnesium 1.9 mg/dL (1.6-2.6); Osmolality,Calculated 287 (280-300); Potassium 3.8 mEq/L (3.5-5.1); Sodium 139 mEq/L (136-145); Total Protein 5.2 g/dL (6.4-8.9)
[2022-07-05] MEDS: *HR* Enoxaparin 40 MG/0.4 ML SYRINGE SQ SCH (06:13)
[2022-07-05 07:55] VITALS: BP 162/100; PULSE 71; RESP 16; TEMP 97.6; O2SAT 94
[2022-07-05] MEDS: Sacubitril/Valsartan 49/51 MG 1 TABLET PO SCH (10:37)
[2022-07-05] MEDS: *HR* LORazepam 1 MG TABLET PO SCH (10:37)
[2022-07-05] MEDS: Aspirin Enteric Coated 81 MG Tablet PO SCH (10:38)
[2022-07-05] MEDS: Carbidopa/Levodopa 25/100 TABLET PO SCH ×2 (10:38→13:17)
[2022-07-05] MEDS: polyethylene glycoL 3350 17 GM POWD.PACK PO SCH (10:38)
[2022-07-05] MEDS: Furosemide 20 MG TABLET PO SCH (10:38)
[2022-07-05] MEDS ORDERED: *HR* LORazepam 1 MG TABLET PO PRN (11:40)
[2022-07-05] MEDS: Acetaminophen 325 MG TABLET PO PRN (14:35)
== END 2022-07-05 14:56 | disposition short-term general hospital (02) | DRG 177 ==
LOC: INPGRE 06-21 02:38
PROVIDERS: ADMIT Family Medicine; ATTEND Family Medicine

== ENCOUNTER 2022-07-07 15:01 | Inpatient (IN) ==
[2022-07-07] MEDS: Carbidopa/Levodopa 25/100 TABLET PO SCH (20:49)
[2022-07-07] MEDS: Sacubitril/Valsartan 24/26 MG 1 TABLET PO SCH (20:49)
[2022-07-07] MEDS ORDERED: CARBIDOPA PO SCH (21:00)
[2022-07-07] MEDS ORDERED: LEVODOPA PO SCH (21:00)
[2022-07-08] MEDS: hydrALAZINE 10 MG TABLET PO SCH ×5 (00:08→23:50)
[2022-07-08 03:46] LABS: Basophils # 0.1 K/mcL (0.0-0.2); Basophils % 1.6 %; Eosinophils # 0.2 K/mcL (0.0-0.6); Eosinophils % 5.4 %; Hematocrit 34.2 % (35.3-44.9); Hemoglobin 10.4 g/dL (11.5-15.4); Immature Granulocytes % 0.2 % (0-4); Lymphocytes # 0.9 K/mcL (0.6-4.6); Lymphocytes % 19.8 %; Mean Corpuscular HGB Conc 30.4 g/dL (31.6-35.5); Mean Corpuscular Hemoglobin 27.2 pg (28.0-33.3); Mean Corpuscular Volume 89.3 fL (83.0-100.0); Mean Platelet Volume 13.7 fL (9.4-12.4); Monocytes # 0.5 K/mcL (0.0-1.3); Monocytes % 11.3 %; Neutrophils # 2.7 K/mcL (1.6-8.9); Platelet Count 139 K/mcL (140-400); Red Blood Count 3.83 M/mcL (3.82-4.97); Red Cell Distribution Width 15.9 % (11.5-14.5); Segmented Neutrophils % 61.7 %; White Blood Count 4.4 K/mcL (4.3-11.1)
[2022-07-08 04:00] LABS: BUN/Creatinine Ratio 34 (6-26); Blood Urea Nitrogen 21 mg/dL (8-23); Calcium 8.7 mg/dL (8.6-10.3); Carbon Dioxide 28 mEq/L (23-29); Chloride 105 mEq/L (98-107); Glucose 107 mg/dL (70-105); Osmolality,Calculated 293 (280-300); Potassium 3.8 mEq/L (3.5-5.1); Sodium 140 mEq/L (136-145)
[2022-07-08] MEDS: *HR* Enoxaparin 40 MG/0.4 ML SYRINGE SQ SCH (06:02)
[2022-07-08] MEDS: Sacubitril/Valsartan 24/26 MG 1 TABLET PO SCH ×2 (08:29→19:41)
[2022-07-08] MEDS: Aspirin Enteric Coated 81 MG Tablet PO SCH (08:30)
[2022-07-08] MEDS: amLODIPine 5 MG TABLET PO SCH (08:30)
[2022-07-08] MEDS: Carbidopa/Levodopa 25/100 TABLET PO SCH ×4 (08:30→17:22)
[2022-07-08] MEDS: Cholecalciferol (D-3) 1,000 UNIT (25MCG) TABLET PO SCH (08:30)
[2022-07-08] MEDS: Furosemide 20 MG TABLET PO SCH (08:30)
[2022-07-08] MEDS: polyethylene glycoL 3350 17 GM POWD.PACK PO SCH (08:32)
[2022-07-08] MEDS ORDERED: Multivit/Ca/Min/Fe/FA 1 TAB TABLET PO SCH (09:00)
[2022-07-08] MEDS: Carbidopa/Levodopa ER 50/200 TABLET PO SCH (21:13)
[2022-07-09] MEDS: *HR* Enoxaparin 40 MG/0.4 ML SYRINGE SQ SCH (05:50)
[2022-07-09] MEDS: hydrALAZINE 10 MG TABLET PO SCH ×3 (05:51→15:43)
[2022-07-09] MEDS: amLODIPine 5 MG TABLET PO SCH (07:49)
[2022-07-09] MEDS: Furosemide 20 MG TABLET PO SCH (07:49)
[2022-07-09] MEDS: Cholecalciferol (D-3) 1,000 UNIT (25MCG) TABLET PO SCH (07:50)
[2022-07-09] MEDS: Sacubitril/Valsartan 24/26 MG 1 TABLET PO SCH ×2 (07:50→21:32)
[2022-07-09] MEDS: Carbidopa/Levodopa 25/100 TABLET PO SCH ×4 (07:50→16:30)
[2022-07-09] MEDS: Aspirin Enteric Coated 81 MG Tablet PO SCH (07:50)
[2022-07-09] MEDS: polyethylene glycoL 3350 17 GM POWD.PACK PO SCH (07:51)
[2022-07-09] MEDS: Multivit/Ca/Min/Fe/FA 1 TAB TABLET PO SCH (11:26)
[2022-07-09] MEDS: Carbidopa/Levodopa ER 50/200 TABLET PO SCH (21:32)
[2022-07-10] MEDS: hydrALAZINE 10 MG TABLET PO SCH ×4 (01:07→17:18)
[2022-07-10] MEDS: Carbidopa/Levodopa 25/100 TABLET PO SCH ×4 (06:43→17:18)
[2022-07-10] MEDS: *HR* Enoxaparin 40 MG/0.4 ML SYRINGE SQ SCH (06:43)
[2022-07-10] MEDS: polyethylene glycoL 3350 17 GM POWD.PACK PO SCH (08:21)
[2022-07-10] MEDS: Cholecalciferol (D-3) 1,000 UNIT (25MCG) TABLET PO SCH (08:21)
[2022-07-10] MEDS: amLODIPine 5 MG TABLET PO SCH (08:21)
[2022-07-10] MEDS: Furosemide 20 MG TABLET PO SCH (08:22)
[2022-07-10] MEDS: Aspirin Enteric Coated 81 MG Tablet PO SCH (08:22)
[2022-07-10] MEDS: Sacubitril/Valsartan 24/26 MG 1 TABLET PO SCH ×2 (08:22→22:03)
[2022-07-10] MEDS: Multivit/Ca/Min/Fe/FA 1 TAB TABLET PO SCH (12:35)
[2022-07-10] MEDS: Carbidopa/Levodopa ER 50/200 TABLET PO SCH (22:03)
[2022-07-10] MEDS: Doxycycline 100 MG CAPSULE PO SCH (22:05)
[2022-07-11] MEDS: hydrALAZINE 10 MG TABLET PO SCH ×4 (04:07→16:56)
[2022-07-11 05:06] LABS: Hematocrit 32.6 % (35.3-44.9); Hemoglobin 10.1 g/dL (11.5-15.4); Mean Corpuscular Hemoglobin 27.4 pg (28.0-33.3); Mean Corpuscular Volume 88.6 fL (83.0-100.0); Mean Platelet Volume 12.8 fL (9.4-12.4); Platelet Count 143 K/mcL (140-400); Red Blood Count 3.68 M/mcL (3.82-4.97); Red Cell Distribution Width 16.1 % (11.5-14.5); White Blood Count 3.9 K/mcL (4.3-11.1)
[2022-07-11 05:21] LABS: BUN/Creatinine Ratio 29 (6-26); Blood Urea Nitrogen 20 mg/dL (8-23); Calcium 8.7 mg/dL (8.6-10.3); Carbon Dioxide 28 mEq/L (23-29); Chloride 106 mEq/L (98-107); Glucose 91 mg/dL (70-105); Magnesium 1.9 mg/dL (1.6-2.6); Osmolality,Calculated 290 (280-300); Potassium 3.7 mEq/L (3.5-5.1); Sodium 139 mEq/L (136-145)
[2022-07-11] MEDS: Carbidopa/Levodopa 25/100 TABLET PO SCH ×4 (05:53→16:56)
[2022-07-11] MEDS: *HR* Enoxaparin 40 MG/0.4 ML SYRINGE SQ SCH (05:54)
[2022-07-11] MEDS: Cholecalciferol (D-3) 1,000 UNIT (25MCG) TABLET PO SCH (08:39)
[2022-07-11] MEDS: Furosemide 20 MG TABLET PO SCH (08:39)
[2022-07-11] MEDS: Aspirin Enteric Coated 81 MG Tablet PO SCH (08:39)
[2022-07-11] MEDS: Doxycycline 100 MG CAPSULE PO SCH ×2 (08:39→21:22)
[2022-07-11] MEDS: Sacubitril/Valsartan 24/26 MG 1 TABLET PO SCH ×2 (08:39→21:22)
[2022-07-11] MEDS: amLODIPine 5 MG TABLET PO SCH (08:40)
[2022-07-11] MEDS: polyethylene glycoL 3350 17 GM POWD.PACK PO SCH (08:40)
[2022-07-11] MEDS: Multivit/Ca/Min/Fe/FA 1 TAB TABLET PO SCH (11:07)
[2022-07-11] MEDS: Carbidopa/Levodopa ER 50/200 TABLET PO SCH (21:22)
[2022-07-12] MEDS: hydrALAZINE 10 MG TABLET PO SCH ×3 (06:24→18:33)
[2022-07-12] MEDS: *HR* Enoxaparin 40 MG/0.4 ML SYRINGE SQ SCH (06:25)
[2022-07-12] MEDS: Carbidopa/Levodopa 25/100 TABLET PO SCH ×4 (06:27→18:33)
[2022-07-12] MEDS: Aspirin Enteric Coated 81 MG Tablet PO SCH (08:06)
[2022-07-12] MEDS: Furosemide 20 MG TABLET PO SCH (08:06)
[2022-07-12] MEDS: Sacubitril/Valsartan 24/26 MG 1 TABLET PO SCH ×2 (08:06→21:54)
[2022-07-12] MEDS: Doxycycline 100 MG CAPSULE PO SCH ×2 (08:07→21:54)
[2022-07-12] MEDS: amLODIPine 5 MG TABLET PO SCH (08:08)
[2022-07-12] MEDS: polyethylene glycoL 3350 17 GM POWD.PACK PO SCH (08:08)
[2022-07-12] MEDS: Cholecalciferol (D-3) 1,000 UNIT (25MCG) TABLET PO SCH (08:08)
[2022-07-12] MEDS: Multivit/Ca/Min/Fe/FA 1 TAB TABLET PO SCH (11:54)
[2022-07-12] MEDS: Carbidopa/Levodopa ER 50/200 TABLET PO SCH (21:55)
[2022-07-13] MEDS: hydrALAZINE 10 MG TABLET PO SCH ×4 (00:15→17:25)
[2022-07-13] MEDS: *HR* Enoxaparin 40 MG/0.4 ML SYRINGE SQ SCH (05:35)
[2022-07-13] MEDS: Carbidopa/Levodopa 25/100 TABLET PO SCH ×4 (05:35→17:25)
[2022-07-13] MEDS: Aspirin Enteric Coated 81 MG Tablet PO SCH (09:12)
[2022-07-13] MEDS: polyethylene glycoL 3350 17 GM POWD.PACK PO SCH (09:12)
[2022-07-13] MEDS: Furosemide 20 MG TABLET PO SCH (09:12)
[2022-07-13] MEDS: Cholecalciferol (D-3) 1,000 UNIT (25MCG) TABLET PO SCH (09:12)
[2022-07-13] MEDS: Doxycycline 100 MG CAPSULE PO SCH ×2 (09:13→20:07)
[2022-07-13] MEDS: amLODIPine 5 MG TABLET PO SCH (09:13)
[2022-07-13] MEDS: Sacubitril/Valsartan 24/26 MG 1 TABLET PO SCH ×2 (09:13→20:07)
[2022-07-13] MEDS: Multivit/Ca/Min/Fe/FA 1 TAB TABLET PO SCH (11:13)
[2022-07-13] MEDS: Carbidopa/Levodopa ER 50/200 TABLET PO SCH (20:07)
[2022-07-14] MEDS: hydrALAZINE 10 MG TABLET PO SCH ×4 (00:05→16:33)
[2022-07-14 04:32] LABS: Hemoglobin 10.2 g/dL (11.5-15.4); Mean Corpuscular HGB Conc 30.9 g/dL (31.6-35.5); Mean Corpuscular Hemoglobin 27.1 pg (28.0-33.3); Mean Corpuscular Volume 87.5 fL (83.0-100.0); Mean Platelet Volume 12.7 fL (9.4-12.4); Platelet Count 150 K/mcL (140-400); Red Blood Count 3.77 M/mcL (3.82-4.97); Red Cell Distribution Width 16.1 % (11.5-14.5); White Blood Count 4.1 K/mcL (4.3-11.1)
[2022-07-14 04:44] LABS: Calcium 8.8 mg/dL (8.6-10.3); Magnesium 1.8 mg/dL (1.6-2.6); Potassium 3.5 mEq/L (3.5-5.1)
[2022-07-14] MEDS: Carbidopa/Levodopa 25/100 TABLET PO SCH ×4 (05:06→16:33)
[2022-07-14] MEDS: *HR* Enoxaparin 40 MG/0.4 ML SYRINGE SQ SCH (05:06)
[2022-07-14] MEDS: polyethylene glycoL 3350 17 GM POWD.PACK PO SCH (09:07)
[2022-07-14] MEDS: Furosemide 20 MG TABLET PO SCH (09:08)
[2022-07-14] MEDS: Doxycycline 100 MG CAPSULE PO SCH ×2 (09:08→19:49)
[2022-07-14] MEDS: Sacubitril/Valsartan 24/26 MG 1 TABLET PO SCH ×2 (09:08→19:49)
[2022-07-14] MEDS: Cholecalciferol (D-3) 1,000 UNIT (25MCG) TABLET PO SCH (09:08)
[2022-07-14] MEDS: Aspirin Enteric Coated 81 MG Tablet PO SCH (09:08)
[2022-07-14] MEDS: amLODIPine 5 MG TABLET PO SCH (09:08)
[2022-07-14] MEDS: Multivit/Ca/Min/Fe/FA 1 TAB TABLET PO SCH (12:16)
[2022-07-14] MEDS: Carbidopa/Levodopa ER 50/200 TABLET PO SCH (19:50)
[2022-07-15] MEDS: hydrALAZINE 10 MG TABLET PO SCH ×4 (03:26→16:27)
[2022-07-15] MEDS: Carbidopa/Levodopa 25/100 TABLET PO SCH ×4 (06:24→16:27)
[2022-07-15] MEDS: *HR* Enoxaparin 40 MG/0.4 ML SYRINGE SQ SCH (06:26)
[2022-07-15] MEDS: Sacubitril/Valsartan 24/26 MG 1 TABLET PO SCH ×2 (10:04→20:18)
[2022-07-15] MEDS: Aspirin Enteric Coated 81 MG Tablet PO SCH (10:05)
[2022-07-15] MEDS: Cholecalciferol (D-3) 1,000 UNIT (25MCG) TABLET PO SCH (10:05)
[2022-07-15] MEDS: polyethylene glycoL 3350 17 GM POWD.PACK PO SCH (10:06)
[2022-07-15] MEDS: Furosemide 20 MG TABLET PO SCH (10:06)
[2022-07-15] MEDS: Doxycycline 100 MG CAPSULE PO SCH ×2 (10:06→20:18)
[2022-07-15] MEDS: amLODIPine 5 MG TABLET PO SCH (10:06)
[2022-07-15] MEDS: Multivit/Ca/Min/Fe/FA 1 TAB TABLET PO SCH (13:34)
[2022-07-15] MEDS: Carbidopa/Levodopa ER 50/200 TABLET PO SCH (20:18)
[2022-07-16] MEDS: hydrALAZINE 10 MG TABLET PO SCH ×4 (03:36→16:43)
[2022-07-16] MEDS: *HR* Enoxaparin 40 MG/0.4 ML SYRINGE SQ SCH (05:34)
[2022-07-16] MEDS: Carbidopa/Levodopa 25/100 TABLET PO SCH ×4 (05:36→16:45)
[2022-07-16] MEDS: amLODIPine 5 MG TABLET PO SCH (08:55)
[2022-07-16] MEDS: Sacubitril/Valsartan 24/26 MG 1 TABLET PO SCH ×2 (08:55→20:00)
[2022-07-16] MEDS: Doxycycline 100 MG CAPSULE PO SCH ×2 (08:55→20:01)
[2022-07-16] MEDS: Aspirin Enteric Coated 81 MG Tablet PO SCH (08:56)
[2022-07-16] MEDS: Furosemide 20 MG TABLET PO SCH (08:56)
[2022-07-16] MEDS: Cholecalciferol (D-3) 1,000 UNIT (25MCG) TABLET PO SCH (08:56)
[2022-07-16] MEDS: polyethylene glycoL 3350 17 GM POWD.PACK PO SCH (08:57)
[2022-07-16] MEDS: Multivit/Ca/Min/Fe/FA 1 TAB TABLET PO SCH (14:07)
[2022-07-16] MEDS: Carbidopa/Levodopa ER 50/200 TABLET PO SCH (20:01)
[2022-07-17] MEDS: hydrALAZINE 10 MG TABLET PO SCH ×5 (00:13→22:46)
[2022-07-17] MEDS: *HR* Enoxaparin 40 MG/0.4 ML SYRINGE SQ SCH (05:49)
[2022-07-17] MEDS: Carbidopa/Levodopa 25/100 TABLET PO SCH ×4 (05:50→18:20)
[2022-07-17] MEDS: polyethylene glycoL 3350 17 GM POWD.PACK PO SCH (09:57)
[2022-07-17] MEDS: Furosemide 20 MG TABLET PO SCH (09:58)
[2022-07-17] MEDS: Doxycycline 100 MG CAPSULE PO SCH ×2 (09:58→22:47)
[2022-07-17] MEDS: amLODIPine 5 MG TABLET PO SCH (09:58)
[2022-07-17] MEDS: Aspirin Enteric Coated 81 MG Tablet PO SCH (09:58)
[2022-07-17] MEDS: Cholecalciferol (D-3) 1,000 UNIT (25MCG) TABLET PO SCH (09:58)
[2022-07-17] MEDS: Sacubitril/Valsartan 24/26 MG 1 TABLET PO SCH ×2 (09:59→22:46)
[2022-07-17] MEDS: Multivit/Ca/Min/Fe/FA 1 TAB TABLET PO SCH (13:46)
[2022-07-17] MEDS ORDERED: hydrALAZINE 10 MG TABLET PO SCH (13:50)
[2022-07-17] MEDS: Nystatin POWDER 30 GM BOTTLE TP SCH ×2 (16:54→22:46)
[2022-07-17] MEDS: Carbidopa/Levodopa ER 50/200 TABLET PO SCH (22:46)
[2022-07-18] MEDS: *HR* Enoxaparin 40 MG/0.4 ML SYRINGE SQ SCH (06:39)
[2022-07-18] MEDS: Carbidopa/Levodopa 25/100 TABLET PO SCH ×4 (06:39→17:24)
[2022-07-18] MEDS: hydrALAZINE 10 MG TABLET PO SCH ×4 (06:39→23:28)
[2022-07-18] MEDS: Aspirin Enteric Coated 81 MG Tablet PO SCH (10:26)
[2022-07-18] MEDS: amLODIPine 5 MG TABLET PO SCH (10:26)
[2022-07-18] MEDS: Furosemide 20 MG TABLET PO SCH (10:26)
[2022-07-18] MEDS: Sacubitril/Valsartan 24/26 MG 1 TABLET PO SCH ×2 (10:26→20:07)
[2022-07-18] MEDS: Cholecalciferol (D-3) 1,000 UNIT (25MCG) TABLET PO SCH (10:26)
[2022-07-18] MEDS: polyethylene glycoL 3350 17 GM POWD.PACK PO SCH (10:27)
[2022-07-18] MEDS: Nystatin POWDER 30 GM BOTTLE TP SCH ×3 (10:30→20:07)
[2022-07-18] MEDS: Multivit/Ca/Min/Fe/FA 1 TAB TABLET PO SCH (12:54)
[2022-07-18] MEDS: Carbidopa/Levodopa ER 50/200 TABLET PO SCH (20:06)
[2022-07-19] MEDS: hydrALAZINE 10 MG TABLET PO SCH ×4 (05:03→22:59)
[2022-07-19] MEDS: *HR* Enoxaparin 40 MG/0.4 ML SYRINGE SQ SCH (05:03)
[2022-07-19] MEDS: Carbidopa/Levodopa 25/100 TABLET PO SCH ×4 (05:05→17:50)
[2022-07-19] MEDS: Sacubitril/Valsartan 24/26 MG 1 TABLET PO SCH ×2 (08:04→20:06)
[2022-07-19] MEDS: Cholecalciferol (D-3) 1,000 UNIT (25MCG) TABLET PO SCH (08:04)
[2022-07-19] MEDS: Aspirin Enteric Coated 81 MG Tablet PO SCH (08:04)
[2022-07-19] MEDS: polyethylene glycoL 3350 17 GM POWD.PACK PO SCH (08:05)
[2022-07-19] MEDS: Furosemide 20 MG TABLET PO SCH (08:05)
[2022-07-19] MEDS: Nystatin POWDER 30 GM BOTTLE TP SCH ×3 (08:05→20:06)
[2022-07-19] MEDS: amLODIPine 5 MG TABLET PO SCH (08:05)
[2022-07-19] MEDS: Multivit/Ca/Min/Fe/FA 1 TAB TABLET PO SCH (11:32)
[2022-07-19] MEDS: Carbidopa/Levodopa ER 50/200 TABLET PO SCH (20:06)
[2022-07-20] MEDS: Carbidopa/Levodopa 25/100 TABLET PO SCH ×4 (05:07→17:45)
[2022-07-20] MEDS: hydrALAZINE 10 MG TABLET PO SCH ×3 (05:07→17:45)
[2022-07-20] MEDS: *HR* Enoxaparin 40 MG/0.4 ML SYRINGE SQ SCH (05:08)
[2022-07-20] MEDS: amLODIPine 5 MG TABLET PO SCH (08:38)
[2022-07-20] MEDS: Furosemide 20 MG TABLET PO SCH (08:38)
[2022-07-20] MEDS: Sacubitril/Valsartan 24/26 MG 1 TABLET PO SCH ×2 (08:39→20:06)
[2022-07-20] MEDS: polyethylene glycoL 3350 17 GM POWD.PACK PO SCH (08:39)
[2022-07-20] MEDS: Aspirin Enteric Coated 81 MG Tablet PO SCH (08:39)
[2022-07-20] MEDS: Cholecalciferol (D-3) 1,000 UNIT (25MCG) TABLET PO SCH (08:39)
[2022-07-20] MEDS: Nystatin POWDER 30 GM BOTTLE TP SCH ×3 (08:45→20:00)
[2022-07-20] MEDS: Multivit/Ca/Min/Fe/FA 1 TAB TABLET PO SCH (12:08)
[2022-07-20] MEDS: Carbidopa/Levodopa ER 50/200 TABLET PO SCH (20:06)
[2022-07-21 05:28] LABS: Basophils # 0.1 K/mcL (0.0-0.2); Basophils % 1.3 %; Eosinophils # 0.2 K/mcL (0.0-0.6); Eosinophils % 4.8 %; Hematocrit 33.8 % (35.3-44.9); Hemoglobin 10.5 g/dL (11.5-15.4); Immature Granulocytes % 0.3 % (0-4); Lymphocytes % 25.5 %; Mean Corpuscular HGB Conc 31.1 g/dL (31.6-35.5); Mean Corpuscular Hemoglobin 27.4 pg (28.0-33.3); Mean Corpuscular Volume 88.3 fL (83.0-100.0); Mean Platelet Volume 11.7 fL (9.4-12.4); Monocytes # 0.5 K/mcL (0.0-1.3); Monocytes % 11.3 %; Neutrophils # 2.3 K/mcL (1.6-8.9); Platelet Count 143 K/mcL (140-400); Red Blood Count 3.83 M/mcL (3.82-4.97); Red Cell Distribution Width 16.8 % (11.5-14.5); Segmented Neutrophils % 56.8 %
[2022-07-21] MEDS: hydrALAZINE 10 MG TABLET PO SCH ×2 (05:46→06:01)
[2022-07-21 05:49] LABS: Potassium 3.6 mEq/L (3.5-5.1)
[2022-07-21] MEDS: *HR* Enoxaparin 40 MG/0.4 ML SYRINGE SQ SCH (06:00)
[2022-07-21] MEDS: Carbidopa/Levodopa 25/100 TABLET PO SCH ×2 (06:03→08:02)
[2022-07-21 07:55] VITALS: BP 129/76; PULSE 66; RESP 18; TEMP 97.9; O2SAT 94
[2022-07-21] MEDS: Aspirin Enteric Coated 81 MG Tablet PO SCH (08:02)
[2022-07-21] MEDS: Cholecalciferol (D-3) 1,000 UNIT (25MCG) TABLET PO SCH (08:02)
[2022-07-21] MEDS: amLODIPine 5 MG TABLET PO SCH (08:02)
[2022-07-21] MEDS: Sacubitril/Valsartan 24/26 MG 1 TABLET PO SCH (08:02)
[2022-07-21] MEDS: Furosemide 20 MG TABLET PO SCH (08:03)
[2022-07-21] MEDS: Nystatin POWDER 30 GM BOTTLE TP SCH (08:03)
[2022-07-21] MEDS: polyethylene glycoL 3350 17 GM POWD.PACK PO SCH (08:03)
== END 2022-07-21 12:10 | disposition home health service (06) | DRG 56 ==
LOC: INPGRE 18:13
PROVIDERS: ADMIT Family Medicine; ATTEND Family Medicine